=== PATIENT | male | born 1975 | race Caucasian/White ===

== ENCOUNTER 2020-08-20 09:25 | Outpatient (CLI) | payer OTHER | END 2020-08-20 09:26 | disposition home or self-care (01) | LOC: BICRAD 09:25 | PROVIDERS: ATTEND Nurse Practitioner Family | DX: M47.22 Other spondylosis with radiculopathy, cervical region (principal); M25.511 Pain in right shoulder; M25.512 Pain in left shoulder; M54.6 Pain in thoracic spine; M54.5 Low back pain; M47.816 Spondylosis without myelopathy or radiculopathy, lumbar region; M47.814 Spondylosis without myelopathy or radiculopathy, thoracic region | CPT/HCPCS: 72040; 72072; 72100 ==

== ENCOUNTER 2021-03-09 10:19 | Outpatient (CLI) | payer OTHER ==
[2021-03-09 22:34] LABS: SARS-CoV-2 PCR by NAA Not Detected (NotDetected)
== END 2021-03-09 10:20 | disposition home or self-care (01) ==
LOC: LABBT 10:19
PROVIDERS: ATTEND Neurological Surgery
DX: Z01.812 Encounter for preprocedural laboratory examination (principal); M54.12 Radiculopathy, cervical region; Z20.822 Contact with and (suspected) exposure to COVID-19
CPT/HCPCS: U0003; U0005

== ENCOUNTER 2021-03-12 05:45 | Day surgery (SDC) | payer OTHER ==
[2021-03-05 14:43] VITALS: BMI 37.2
[2021-03-12] MEDS ORDERED: Dexmedetomidine 200 MCG/2 ML VIAL ONE (06:26)
[2021-03-12] MEDS ORDERED: Fentanyl 100 MCG/2 ML VIAL ONE ×2 (06:26→08:49)
[2021-03-12] MEDS ORDERED: SUGAMMADEX SODIUM 200 MG/2 ML VIAL ONE (06:26)
[2021-03-12] MEDS ORDERED: Famotidine/PF 20 mg/2ml Vial ONE (06:26)
[2021-03-12] MEDS ORDERED: Thrombin 5000 UNITS/5 ML VIAL ONE (06:34)
[2021-03-12] MEDS ORDERED: ceFAZolin 2 GM/Dextrose 50 ML IVPB ONE ×2 (06:55→10:26)
[2021-03-12] MEDS ORDERED: PROPOFOL 200 MG/20 ML VIAL ONE (07:03)
[2021-03-12] MEDS ORDERED: Lidocaine 1% PF 5 ML VIAL ONE (07:03)
[2021-03-12] MEDS ORDERED: Rocuronium Bromide 10 MG/ML (10ML VIAL) ONE (07:03)
[2021-03-12] MEDS ORDERED: Tamsulosin HCl 0.4 MG CAP ONE (09:52)
[2021-03-12] MEDS ORDERED: HYDROcodone/Acetaminophen 5/325 mg Tablet ONE (10:15)
== END 2021-03-12 11:05 | disposition home or self-care (01) ==
LOC: SDC 05:45
PROVIDERS: ATTEND Neurological Surgery
PROC: 0RT30ZZ Resection of Cervical Vertebral Disc, Open Approach (ICD-10-PCS; principal; 2021-03-12)
PROC: 0RG2070 Fusion of 2 or more Cervical Vertebral Joints with Autologous Tissue Substitute, Anterior Approach, Anterior Column, Open Approach (ICD-10-PCS; principal; 2021-03-12)
PROC: 0RG20A0 Fusion of 2 or more Cervical Vertebral Joints with Interbody Fusion Device, Anterior Approach, Anterior Column, Open Approach (ICD-10-PCS; principal; 2021-03-12)
DX: M54.12 Radiculopathy, cervical region (principal)
CPT/HCPCS: 76000; C1713; C1776; J0690; J3010; S0028

== ENCOUNTER 2021-07-13 09:30 | Outpatient (CLI) | payer OTHER | END 2021-07-13 09:31 | disposition home or self-care (01) | LOC: TBSIIMAG 09:30 | PROVIDERS: ATTEND Physician Assistant | DX: M54.2 Cervicalgia (principal); M47.812 Spondylosis without myelopathy or radiculopathy, cervical region; Z98.1 Arthrodesis status | CPT/HCPCS: 72040 ==

== ENCOUNTER 2021-08-26 08:10 | Outpatient (CLI) | payer OTHER | END 2021-08-26 08:11 | disposition home or self-care (01) | PROVIDERS: ATTEND Neurological Surgery | DX: M54.12 Radiculopathy, cervical region (principal) ==

== ENCOUNTER 2022-11-14 13:06 | Emergency (ER) | payer OTHER ==
[2022-11-14] MEDS ORDERED: fentaNYL 50 mcg/mL 1 mL Vial ONE (14:06)
== END 2022-11-14 15:39 | disposition home or self-care (01) ==
LOC: ERS 13:06
DX: S20.212A Contusion of left front wall of thorax, initial encounter (principal); Z87.891 Personal history of nicotine dependence; W54.1XXA Struck by dog, initial encounter
CPT/HCPCS: 71250; 72125; 74177; 96372; J3010